=== PATIENT | female | born 1950 | race Caucasian/White ===

== ENCOUNTER 2018-08-31 05:48 | Day surgery (SDC) | payer OTHER ==
[~2018-08-31] VITALS: Ht 152.4 cm; Wt 46.4 kg
[2018-08-31 07:30] VITALS: BP 130/64; PULSE 70; RESP 18
[2018-08-31] MEDS ORDERED: LOSARTAN (07:32)
[2018-08-31] MEDS ORDERED: ATENOLOL (07:32)
[2018-08-31] MEDS ORDERED: AMLODIPINE (07:32)
[2018-08-31 07:36] VITALS: Ht 152.4 cm; Wt 46.4 kg
[2018-08-31] MEDS ORDERED: PROPOFOL 20 ML ONE (07:42)
--- NOTE | 2018-08-31 07:42 | PREAC ---
Date/Time of Note Date/Time of Note DATE: 08/31/18 TIME: 07:41 Anesthesia Eval and Record Evaluation Time Pre-Procedure Interview DATE: 08/31/18 TIME: 07:41 Age 67 Sex female NPO: 8 hrs Preoperative diagnosis Screening Planned procedure Colonoscopy Past Medical History Past Medical History: Includes Cardio: HTN Surgery & Anesthesia Issues No known issue Meds Anticoagulation: No Beta Scarlett within 24 hr: No Reason Beta Scarlett not given: Pt. not on B-Scarlett Reported Medications [Losartan] No Conflict Check 08/31/18 [Atenolol] No Conflict Check 08/31/18 [Amlodipine] No Conflict Check 08/31/18 Meds reviewed: Yes Allergies Coded Allergies: No Known Allergy (Unverified , 08/31/18) Allergies Reviewed: Yes Labs/Studies Labs Reviewed: Reviewed by anesthesiologist test: N/A Studies: ECG (n/a), CXR (n/a) Pre-procedure Exam Airway: Adequate mouth opening, Adequate thyromental dist Mallampati: Mallampati II Teeth: Normal Lung: Normal Heart: Normal ASA Physical Status ASA physical status: 2 Emergency: None Planned Pain Management Parenteral pain med Pre-operative Attestations Prior to commencing anesthesia and surgery, the patient was re-evaluated, there was verification of: *The patient's identity *The results of appropriate recent lab work and preoperative vital signs *The above evaluation not changing prior to induction *Anesthetic plan, risk benefits, alternative and complications discussed with patient/family; questions answered; patient/family understands, accepts and wishes to proceed. MARY ELLEN MORTON MD Aug 31, 2018 07:42
--- NOTE | 2018-08-31 08:05 | PAC ---
Date/Time of Note Date/Time of Note DATE: 08/31/18 TIME: 08:05 Post-Anesthesia Notes Post-Anesthesia Note Last documented vital signs T: 98.0 Activity: WNL Respiratory function: WNL Cardiovascular function: WNL Mental status: Baseline Pain reasonably controlled: Yes Hydration appropriate: Yes Nausea/Vomiting absent: Yes MARY ELLEN MORTON MD Aug 31, 2018 08:05
== END 2018-08-31 12:07 | disposition home or self-care (01) ==
LOC: GIL 05:48
PROVIDERS: ATTEND Internal Medicine Gastroenterology
DX: Z12.11 Encounter for screening for malignant neoplasm of colon (principal); K64.1 Second degree hemorrhoids
CPT/HCPCS: 45378; Z7610